=== PATIENT | female | born 1955 | race American Indian/Alaskan Native ===

== ENCOUNTER 2018-03-31 13:52 | Outpatient (CLI) | payer OTHER ==
--- NOTE | 2018-03-31 14:31 | XRay Report ---
Lumbar spine: Lumbago. AP and lateral views of lumbar spine demonstrates mild anterior traction spurring at multiple levels most significant at the L5 level. There is also small posterior inferior spur L5. There is narrowing of the L5-S1 interspace. The L5 body may be slightly compressed but otherwise the vertebral height is normal at all levels and there is normal alignment. The bones appear well-mineralized. Impression: Degenerative bone and disc changes predominantly at L5.
== END 2018-03-31 13:53 | disposition home or self-care (01) ==
LOC: XRAY 13:52
PROVIDERS: ATTEND Internal Medicine
DX: Z02.71 Encounter for disability determination (principal); M47.896 Other spondylosis, lumbar region; M48.07 Spinal stenosis, lumbosacral region
CPT/HCPCS: 72100

== ENCOUNTER 2019-01-15 18:12 | Emergency (ER) | payer SELFPAY ==
[2019-01-15 20:03] LABS: Basophils # (Auto) 0.1 K/mm3 (0.0-0.1); Basophils % (Auto) 1.2 % (0.0-1.8); Eosinophils # (Auto) 0.1 K/mm3 (0.0-0.4); Eosinophils % (Auto) 0.9 % (0.0-4.3); Hematocrit 47.4 % (30.3-42.9); Hemoglobin 15.8 gm/dl (10.1-14.3); Lymphocytes # (Auto) 3.4 K/mm3 (1.2-5.4); Lymphocytes % (Auto) 42.5 % (13.4-35.0); Mean Corpuscular HGB Conc 33 % (30-34); Mean Corpuscular Volume 90 fl (79-97); Monocytes # (Auto) 0.4 K/mm3 (0.0-0.8); Monocytes % (Auto) 5.3 % (0.0-7.3); Platelet Count 245 K/mm3 (140-440); Red Blood Count 5.27 M/mm3 (3.65-5.03); Red Cell Distribution Width 13.6 % (13.2-15.2)
[2019-01-15 20:18] LABS: Bilirubin,Urine NEG (Negative); Blood,Urine NEG (Negative); Color,Urine Straw (Yellow); Mucus,Urine FEW /HPF; Protein,Urine <15 mg/dL mg/dL (Negative); Urobilinogen,Urine < 2.0 mg/dL (<2.0)
[2019-01-15 20:34] LABS: Alanine Aminotransferase 14 units/L (7-56); Albumin 4.3 g/dL (3.9-5); BUN/Creatinine Ratio 20; Blood Urea Nitrogen 18 mg/dL (7-17); Calcium 10.4 mg/dL (8.4-10.2); Hemolysis Index 74
[2019-01-15] MEDS ORDERED: SODIUM CHLORIDE 0.9% 1000 ML 1,000 ML IV ONE (20:48)
--- NOTE | 2019-01-15 20:55 | Emergency Department Report ---
HPI - General Chief Complaint: Hyperglycemia Time Seen by Provider: 01/15/19 20:40 - HPI HPI: Room 18 The pt is a 63 y/o F p/w a cc of hyperglycemia. The pt states she's been "feeling bad"x 1-2 weeks. Pts sxs include polyuria, polydipsia, blurred vision and fatigue. Today the pt went [facility] and was found to have a glucose of 474. Pt denies recent steroid use. ED Past Medical Hx - Past Medical History Previous Medical History?: No Hx Hypertension: Yes Hx Diabetes: No (Pre-DM) Additional medical history: CAD - Surgical History Past Surgical History?: Yes Additional Surgical History: Hysterectomy - Family History Family history: no significant - Social History Smoking Status: Former Smoker (none x 2 years) Substance Use Type: None (denies illicit drug use) - Medications Home Medications: Home Medications Medication Instructions Recorded Confirmed Last Taken Type metFORMIN [Glucophage] 500 mg PO BID #60 tablet 01/15/19 Unknown Rx ED Review of Systems ROS: Stated complaint: HIGH GLUCOSE Other details as noted in HPI Constitutional: malaise Eyes: denies: eye pain ENT: other Respiratory: no symptoms reported Cardiovascular: denies: chest pain Endocrine: increased thirst, increased urine Gastrointestinal: denies: abdominal pain Genitourinary: denies: dysuria Musculoskeletal: denies: back pain Neurological: denies: headache Physical Exam - Physical Exam Vital Signs: Vital Signs 01/15/19 18:48 Temperature 98.4 F Pulse Rate 64 Respiratory 16 Rate Blood Pressure 165/86 O2 Sat by Pulse 97 Oximetry Physical Exam: GEN: WD WN sitting on stretcher in NAD HEENT: EOMI, NCAT NECK: Trachea midline, no stridor CV: rrr no m/r/g PULM: CTA bilat, no resp distress ABD: S/NT/ND +BS SKIN: No diaphoresis NEURO: GCS 15 MS: no deformity ED Course Vital Signs 01/15/19 18:48 Temperature 98.4 F Pulse Rate 64 Respiratory 16 Rate Blood Pressure 165/86 O2 Sat by Pulse 97 Oximetry - Reevaluation(s) Reevaluation #1: 01/15/19 23:02 BG 255 ED Medical Decision Making - Lab Data Result diagrams: 01/15/19 19:39 01/15/19 19:39 Laboratory Tests 11/01/15/19 01/15/19 18:50 19:04 19:39 WBC 8.0 RBC 5.27 H Hgb 15.8 H Hct 47.4 H MCV 90 MCH 30 MCHC 33 RDW 13.6 Plt Count 245 Lymph % (Auto) 42.5 H [place] % (Auto) 5.3 Eos % (Auto) 0.9 Baso % (Auto) 1.2 Lymph # 3.4 [place] # 0.4 Eos # 0.1 Baso # 0.1 Seg Neutrophils % 50.1 Seg Neutrophils # 4.0 VBG pH Sodium Potassium Chloride Carbon Dioxide Anion Gap BUN Creatinine Estimated GFR BUN/Creatinine Ratio Glucose POC Glucose 411 H Calcium Total Bilirubin AST ALT Alkaline Phosphatase Total Protein Albumin Albumin/Globulin Ratio Urine Color Straw Urine Turbidity Clear Urine pH 5.0 Ur Specific [place] 1.027 Urine Protein <15 mg/dl Urine Glucose (UA) >=500 Urine Ketones 20 Urine Blood Neg Urine Nitrite Neg Urine Bilirubin Neg Urine Urobilinogen < 2.0 Ur Leukocyte Esterase Neg Urine WBC (Auto) 2.0 Urine RBC (Auto) 3.0 U Epithel Cells (Auto) < 1.0 Urine Mucus Few 01/15/19 01/15/19 19:39 21:40 WBC RBC Hgb Hct MCV MCH MCHC RDW Plt Count Lymph % (Auto) [place] % (Auto) Eos % (Auto) Baso % (Auto) Lymph # [place] # Eos # Baso # Seg Neutrophils % Seg Neutrophils # VBG pH 7.373 Sodium 131 L Potassium 4.5 Chloride 90.7 L Carbon Dioxide 23 Anion Gap 22 BUN 18 H Creatinine 0.9 Estimated GFR > 60 BUN/Creatinine Ratio 20 Glucose 446 H POC Glucose Calcium 10.4 H Total Bilirubin 0.50 AST 16 ALT 14 Alkaline Phosphatase 112 Total Protein 8.0 Albumin 4.3 Albumin/Globulin Ratio 1.2 Urine Color Urine Turbidity Urine pH Ur Specific [place] Urine Protein Urine Glucose (UA) Urine Ketones Urine Blood Urine Nitrite Urine Bilirubin Urine Urobilinogen Ur Leukocyte Esterase Urine WBC (Auto) Urine RBC (Auto) U Epithel Cells (Auto) Urine Mucus - Differential Diagnosis DM new onset, DKA Critical care attestation.: If time is entered above; I have spent that time in minutes in the direct care of this critically ill patient, excluding procedure time. ED Disposition Clinical Impression: Diabetes mellitus, new onset, Hyperglycemia Disposition: DC-01 TO HOME OR SELFCARE Is pt being admited?: No Does the pt Need Aspirin: No Condition: Stable Instructions: How to Check Your Blood Sugar (ED), Diabetes Mellitus Type 2 in Adults (ED) Prescriptions: metFORMIN [Glucophage] 500 mg PO BID #60 tablet Referrals: [facility] [Outside] - 3-5 Days Time of Disposition: 23:02
[2019-01-15] MEDS ORDERED: INSULIN REGULAR, HUMAN 100 UNITS/1 ML IV ONE ×2 (22:00→22:34)
[2019-01-15 23:04] VITALS: BP 135/63
== END 2019-01-15 23:15 | disposition home or self-care (01) ==
LOC: ED 18:12
DX: E11.65 Type 2 diabetes mellitus with hyperglycemia (principal); I10 Essential (primary) hypertension; Z87.891 Personal history of nicotine dependence; Z90.710 Acquired absence of both cervix and uterus; Z79.84 Long term (current) use of oral hypoglycemic drugs
CPT/HCPCS: 36415; 80053; 81001; 82805; 82962; 85025; 96374; 96375; 99283; J7030; 96361; J1815